=== PATIENT | female | born 1985 | race Caucasian/White ===

== ENCOUNTER 2016-08-27 19:04 | Emergency (ER) | payer BC, OTHER ==
[~2016-08-27 19:04] MED LIST: ALLEGRA-D1 TAB.SR .; AMBIEN5 M1 PO; BENTYL20 M1 PO; EFFEXOR XR150 M1 PO; FLEXERIL10 MG PO; JUNEL 1 MG-201 EACH PO; NORCO 5/325 TAB1 TAB PO; NORCO 5/3251 TAB PO; ORTHO TRI-7 DAYSX 3; XANAX0.5 M1 PO; ZOFRAN4 M2 PO; ZOLOFT100 MG
[2016-08-27] MEDS ORDERED: SYNTHROID75 MC1 PO (21:00)
[2016-08-27] MEDS ORDERED: SAPHRIS5 M1 SL (21:01)
[2016-08-27] MEDS ORDERED: [UNRECOGNIZED DRUG - OTHER] PO (21:02)
[2016-08-27] MEDS ORDERED: OXTELLAR PO (21:03)
[2016-08-27] MEDS ORDERED: ZOFRAN4 M2 PO (23:12)
== END 2016-08-27 23:41 ==
LOC: EDMED 19:04
DX: G43.909 Migraine, unspecified, not intractable, without status migrainosus (principal); Z90.89 Acquired absence of other organs; Z87.891 Personal history of nicotine dependence
CPT/HCPCS: J1200; J1885; J2270; J2405; J7030